=== PATIENT | female | born 1935 | race Caucasian/White ===

== ENCOUNTER 2016-07-11 11:04 | Emergency (ER) | payer OTHER, MEDICARE ==
--- NOTE | 2016-07-11 11:41 | ED SKIN/ALLERGY COMPLAINT ---
History of Present Illness General Chief Complaint: Skin Rash/ Abcess Stated Complaint: RASH Source: patient Exam Limitations: no limitations Vital Signs & Intake/Output Vital Signs & Intake/Output Vital Signs Date Time Temp Pulse Resp B/P B/P Pulse O2 O2 Flow FiO2 Mean Ox Delivery Rate 07/11 1252 98.4 60 18 170/74 94 Nasal 2.0L Cannula 07/11 1112 97.2 62 16 173/50 94 Nasal 2.0L Cannula Allergies Coded Allergies: dextromethorphan (Intermediate, RASH 07/11/16) guaifenesin (Intermediate, RASH 07/11/16) Reconcile Medications Clotrimazole (Lotrimin AF) 1 % CREAM..G. 1 USMAN TOP BID RASH apply to affected area(s) Doxycycline Hyclate 100 MG CAPSULE 1 CAP PO BID RASH Fluconazole (Diflucan) 150 MG TABLET 1 TAB PO DAILY RASH Hydrocortisone 2.5 % CREAM..G. 1 USMAN TOP BID PRN RASH Triage Note: PT TO ED WITH RASH TO HEAD. STATES LAST WEEK TOP OF HEAD STARTED TO ITCH. CALLED DERMATOLOTIST AND WAS GIVEN CREAM TO USE. STATES THAT RASH HAS STARTED TO SPREAD TO ARMS. WENT BACK ON TUESDAY DUE TO LT EYE REDNESS AND SWELLING FROM RASH AND WAS PUT ON PREDNISONE, AND TOOK A CULTURE OF AREA ON SCALP. ON TUESDAY WENT BACK TO AND HAD A BIOPSY TO SCALP WELL. STATES SHE DOES NOT FEEL ANY BETTER. STATES WAS AROUND NEPHEW WHO HAD FIFTHS DISEASE. Triage Nurses Notes Reviewed? yes Onset: Gradual Duration: constant, getting worse Timing: recent history Severity: severe Severity Numbers: 7 Possible Factors: no cause identified No Modifying Factors: none HPI: Patient is a 80-year-old female with past medical history of hypothyroidism, CLL in remission, hypertension, hyperlipidemia, COPD on 2 L of oxygen at all times who presents emergent with an 8 day history where she first developed a itching rash to the top of her head which is now spread to her for head eyes torso and now her upper and lower extremities. Patient has been evaluated on 3 occasions by her developmental mathematics professor at [facility] where she has been on steroids and clobetasol with no relief of symptoms. Patient denies any new specific allergens denies any new soaps or detergents new medications or etiology of complaints however patient does note to have a grandchild with this disease currently. Denies any fever chills shortness of breath cough tongue swelling with swelling difficulty breathing and is otherwise without complaints. Patient states that her most concerning symptom with the rash is itching. Denies any pain (MELISSA JUAN) Past History Travel History Traveled to [place] past 21 day No Medical History Any Pertinent Medical History? see below for history Cardiovascular: hypertension, hyperlipidemia Respiratory: COPD Gastrointestinal: GERD Endocrine: hypothyroidism Cancer(s): CLL Surgical History Surgical History: non-contributory Psychosocial History What is your primary language [place] Tobacco Use: Never used Family History Hx Contributory? No (MELISSA JUAN) Review of Systems Review of Systems Constitutional: Reports: no symptoms. EENTM: Reports: no symptoms. Respiratory: Reports: no symptoms. Cardiovascular: Reports: no symptoms. GI: Reports: no symptoms. Genitourinary: Reports: no symptoms. Musculoskeletal: Reports: no symptoms. Skin: Reports: see HPI, erythema. Neurological/Psychological: Reports: no symptoms. Hematologic/Endocrine: Reports: no symptoms. Immunologic/Allergic: Reports: no symptoms. All Other Systems: Reviewed and Negative (MELISSA JUAN) Physical Exam Physical Exam General Appearance: no apparent distress, alert, comfortable Eyes: Bilateral: normal appearance, PERRL, EOMI. Ears, Nose, Throat: normal pharynx, normal ENT inspection, hearing grossly normal Neck: normal inspection, supple Respiratory: normal breath sounds, chest non-tender, no respiratory distress Gastrointestinal: normal bowel sounds, soft, non-tender Skin: intact Skin Problem Location: face, upper extremities Lymphatic: no anterior cervical galen Diagram Body: 1) Noted pustule with mild surrounding erythema 2) Noted pustule with mild surrounding erythe 3) Noted pustule with mild surrounding erythe 4) Noted pustule with mild surrounding erythe 5) Noted pustule with mild surrounding erythe Head: 1) Noted erythematous raised rash 2) Noted periorbital erythematous raised rash 3) Conjunctiva normal (MELISSA JUAN) Progress Differential Diagnosis: abscess/cellulitis, allergic reaction, anaphylaxis, angioedema, contact dermatitis, drug reaction, erythema multiforme, lyme disease , meningitis/sepsis, piyriasis rosea, scarlet fever, shingles, syphilis/ gonococcemia, toxic shock syndrome, urticaria, FUNGAL RASH Plan of Care: Orders Procedure Date/time Status COMPREHENSIVE METABOLIC PANEL 07/11 1227 Complete CBC WITHOUT DIFFERENTIAL 07/11 1227 Complete Laboratory Tests 07/11/16 1231: Anion Gap 7, Estimated GFR > 60, BUN/Creatinine Ratio 24.4, Glucose 99, Calcium 8.9, Total Bilirubin 1.0, AST 28, ALT 34, Alkaline Phosphatase 63, Total Protein 6.4, Albumin 3.8, Globulin 2.6, Albumin/Globulin Ratio 1.5, CBC w Diff MAN DIFF ORDERED, RBC 3.46 L, MCV 102.2 H, MCH 33.9 H, RDW 14.7 H, MPV 8.5, Gran % 39.9 L, Lymphocytes % 58.6 H, Monocytes % 1.1 L, Eosinophils % 0.3, Basophils % 0.1, Absolute Granulocytes 3.7, Segmented Neutrophils 31 L, Band Neutrophils 7 H, Absolute Lymphocytes 5.4 H, Lymphocytes 60 H, Monocytes 1 L, Absolute Monocytes 0.1 L, Absolute Eosinophils 0, Basophils 1, Absolute Basophils 0, Platelet Estimate ADEQUATE, Hypochromic-Microcytic 1+, Macrocytic Cells 1+, PUBS MCHC 33.2 Patient on initial evaluation does note to have allergic dermatitis however patient source is undetermined in the emergency room. Patient has been on significant anti-inflammatory medications with no relief of symptoms in which there is concern of fungal involvement Patient's baseline liver function tests were within normal limits. Patient is afebrile no leukocytosis. Patient will be treated for concerns of fungus rash and she will also be covered with broad-spectrum doxycycline. She was strongly advised to modify with dermatology and to return to emergency room if symptoms worsen and patient will comply. Discussed disposition and plan with DR. PONCE who agrees (JONES VALDEZ,MELISSA) Departure Departure Disposition: HOME OR SELF CARE Condition: Stable Clinical Impression Primary Impression: Rash Referrals: URIEL BARNES MD (PCP/Family) Additional Instructions: As discussed begin the prescription of Diflucan tomorrow as YOU received this medication in the emergency room today. Begin the prescription hydrocortisone cream and next with the prescription of Lotrimin and apply as directed to the affected areas. Begin the prescription of doxycycline as directed for your symptoms. Tomorrow please follow-up with your developmental mathematics professor and provide THEM with blood work administered in the emergency room. If symptoms worsen return to the emergency room. PRESCRIPTIONS awaiting a [facility] Begin [id number] Benadryl and Pepcid as directed for your itching symptoms Departure Forms: Customer Survey General Discharge Information Prescriptions: Current Visit Scripts Fluconazole (Diflucan) 1 TAB PO DAILY #4 TAB Hydrocortisone 1 USMAN TOP BID PRN RASH #1 TUBE Clotrimazole (Lotrimin AF) 1 USMAN TOP BID #24 GM apply to affected area(s) Doxycycline Hyclate 1 CAP PO BID #14 CAP (MELISSA JUAN) PA/DRIVER TRAINEE Co-Sign Statement Statement: ED Attending supervision documentation- x I saw and evaluated the patient. I have also reviewed all the pertinent lab results and diagnostic results. I agree with the findings and the plan of care as documented in the PA's/DRIVER TRAINEE's documentation. [] I have reviewed the ED Record and agree with the PA's/DRIVER TRAINEE's documentation. [] Additions or exceptions (if any) to the PAs/DRIVER TRAINEE's note and plan are summarized below: [] (ROSARIO ORTIZ,KRISTI)
[2016-07-11 12:46] LABS: ABSOLUTE BASOPHIL COUNT 0 /CUMM (0.0-0.2); ABSOLUTE EOSINOPHIL COUNT 0 /CUMM (0.0-0.7); ABSOLUTE GRANULOCYTE CT 3.7 /CUMM (1.4-6.5); ABSOLUTE LYMPH COUNT 5.4 /CUMM (1.2-3.4); ABSOLUTE MONOCYTE COUNT 0.1 /CUMM (0.10-0.60); BASOPHIL % 0.1 % (0.0-2.0); HEMATOCRIT 35.3 % (37-47); MEAN CORPUSCULAR HGB 33.9 PG (27.0-31.0); MEAN CORPUSCULAR HGB CONC 33.2 G/DL (33.0-37.0); MEAN CORPUSCULAR VOLUME 102.2 FL (81.0-99.0); MEAN PLATELET VOLUME 8.5 FL (7.4-10.4); PLATELET COUNT 245 /CUMM (130-400); RBC DISTRIBUTION WIDTH 14.7 % (11.5-14.5); RED BLOOD CELL CT 3.46 /CUMM (4.20-5.40); WHITE BLOOD CELL COUNT 9.2 /CUMM (4.8-10.8)
[2016-07-11 12:52] VITALS: BP 170/74
[2016-07-11 12:56] LABS: EOSINOPHIL % 0.3 % (0-5); GRANULOCYTE % 39.9 % (42.2-75.2)
[2016-07-11] MEDS ORDERED: DIFLUCAN150 M1 PO (13:32)
[2016-07-11] MEDS ORDERED: HYDROCORTISONE30 GM TOP (13:37)
[2016-07-11] MEDS ORDERED: DOXYCYCLINE HY100 M2 PO (13:37)
[2016-07-11] MEDS ORDERED: LOTRIMIN AF12 GM TOP (13:37)
== END 2016-07-11 13:50 ==
LOC: ERH 11:04
PROVIDERS: Physician Assistant
DX: R21 Rash and other nonspecific skin eruption (principal)

== ENCOUNTER 2016-07-16 21:05 | Observation (INO) | payer OTHER, MEDICARE ==
[~2016-07-16] VITALS: Ht 152.4 cm; Wt 46.3 kg
[~2016-07-16 21:05] MED LIST: DIFLUCAN150 M1 PO; DOXYCYCLINE HY100 M2 PO; HYDROCORTISONE30 GM TOP; LOTRIMIN AF12 GM TOP
--- NOTE | 2016-07-16 21:39 | NUR ---
PT SENT TO ED BY ONCOLOGIST S/P BEING DIAGNOSED WITH HSV S/P BIOPSY OF RASH AREA ON SUPERIOR CENTRAL FOREHEAD. PMH OF CLL. PT DENIES PAIN. PMH OF COPD. IS CURRENTLY ON O2 VIA NC AT 2L/MIN. USES O2 WHEN OUT, SLEEPING OR EXERTING HERSELF
--- NOTE | 2016-07-16 22:17 | ED GENERAL ADULT ---
See Addendum History of Present Illness General Chief Complaint: General Adult Stated Complaint: PT WAS SIB DR DIANA HAS HSV Source: patient, family Exam Limitations: no limitations Vital Signs & Intake/Output Vital Signs & Intake/Output Vital Signs Date Time Temp Pulse Resp B/P B/P Pulse O2 O2 Flow FiO2 Mean Ox Delivery Rate 07/164 97.5 70 20 178/71 95 Nasal 2.0L Cannula Allergies Coded Allergies: dextromethorphan (Intermediate, RASH 07/11/16) guaifenesin (Intermediate, RASH 07/11/16) Reconcile Medications Clotrimazole (Lotrimin AF) 1 % CREAM..G. 1 USMAN TOP BID RASH apply to affected area(s) Doxycycline Hyclate 100 MG CAPSULE 1 CAP PO BID RASH Fluconazole (Diflucan) 150 MG TABLET 1 TAB PO DAILY RASH Hydrocortisone 2.5 % CREAM..G. 1 USMAN TOP BID PRN RASH Triage Note: PT SENT TO ED BY ONCOLOGIST S/P BEING DIAGNOSED WITH HSV S/P BIOPSY OF RASH AREA ON SUPERIOR CENTRAL FOREHEAD. PMH OF CLL. PT DENIES PAIN. PMH OF COPD. IS CURRENTLY ON O2 VIA NC AT 2L/MIN. USES O2 WHEN OUT, SLEEPING OR EXERTING HERSELF Triage Nurses Notes Reviewed? yes Onset: Abrupt Duration: day(s): Timing: recent history HPI: 07/16/16 10:50 PM This is an 80-year-old female presents to the emergency department for disseminated herpes zoster. According to the patient she was in her usual state of health until approximately 2 weeks ago when she developed an itchy scalp. She saw her mounter who ultimately did a biopsy and the results came back Tuesday consistent with herpes zoster. She has multiple other lesions on her upper torso. She denies fever or difficulty breathing other than her baseline COPD. She was referred to the emergency department for evaluation of IV antiviral therapy as she has disseminated herpes zoster in the presence of CLL. The onset of the symptoms has been abrupt, the duration has been has 2 weeks. The severity is significant as her symptoms required her to come to the emergency department for care. Past History Travel History Traveled to [place] past 21 day No Medical History Any Pertinent Medical History? see below for history Cardiovascular: hypertension, hyperlipidemia Respiratory: COPD Gastrointestinal: GERD Endocrine: hypothyroidism Cancer(s): CLL Surgical History Surgical History: non-contributory Psychosocial History What is your primary language [place] Tobacco Use: Quit >30 days ago Family History Hx Contributory? No Review of Systems Review of Systems Constitutional: Reports: fever (last week). EENTM: Denies: visual changes. Respiratory: Denies: short of breath. Cardiovascular: Reports: no symptoms. GI: Denies: abdominal pain. Genitourinary: Reports: no symptoms. Musculoskeletal: Reports: no symptoms. Skin: Reports: rash. Neurological/Psychological: Reports: headache. Hematologic/Endocrine: Reports: no symptoms. Physical Exam Physical Exam General Appearance: alert, awake, anxious Head: tenderness, vesicular and scabbed over lesions on the forehead Eyes: Bilateral: normal appearance, PERRL, EOMI. Ears, Nose, Throat: normal pharynx, normal ENT inspection Neck: normal inspection, supple Respiratory: decreased breath sounds, rhonchi Cardiovascular: regular rate/rhythm Peripheral Pulses: 4+ radial (R), 4+ radial (L) Gastrointestinal: soft, non-tender Back: decreased range of motion Extremities: normal inspection Neurologic/Psych: no motor/sensory deficits, awake, alert, oriented x 3 Skin: rash Comments: Has multiple vesicular and abrasion lesions on the upper torso and upper extremities. Core Measures ACS in differential dx? No CVA/TIA Diagnosis: No Severe Sepsis Present: No Septic Shock Present: No Progress Differential Diagnoses I considered the following diagnoses in my evaluation of the patient: [ Disseminated herpes zoster, chronic lymphocytic leukemia, viral pneumonia] Plan of Care: Orders Procedure Date/time Status Heart Healthy Diet 07/[address] in observation 07/16 2252 Active Vital Signs 07/16 2252 Active Code Status 07/16 2252 Active XRY-CHEST XRAY, PA AND LATERAL 07/16 2233 Active Saline Lock 07/16 2233 Active COMPREHENSIVE METABOLIC PANEL 07/16 2233 Active CBC WITHOUT DIFFERENTIAL 07/16 2233 Active Current Medications Sig/Georgie Start time Last Medication Dose Stop Time Status Admin Acyclovir 400 MG Q8H 07/16 2300 UNVr (Zovirax) Dextrose/Water 100 ML (D5W) Initial ED EKG: none Departure Departure Disposition: STILL A PATIENT Condition: Stable Clinical Impression Primary Impression: Disseminated herpes zoster Secondary Impressions: Chronic lymphocytic leukemia Referrals: URIEL BARNES MD (PCP/Family) Departure Forms: Customer Survey General Discharge Information Observation Note Spoke With: [facility] Physician Advisor Notified: CED GOEL DO Place Patient In: Non-ED OBS Care Area Rationale for Observation: My rational for observation is as follows [the patient has disseminated herpes zoster in the presence of chronic lymphocytic leukemia. However the infection is been ongoing for approximately 2 weeks and is in the process of resolving. We'll start her on intravenous acyclovir. 10 mg/kg every 8 hours. Infectious disease consultation in the a.m.]. Critical Care Note Critical Care Note Critical Care Time: non-applicable
--- NOTE | 2016-07-16 22:28 | NUR ---
RASHEED BABIN MD
--- NOTE | 2016-07-16 23:02 | RADIOLOGY REPORT ---
EXAMINATION: XR CHEST CLINICAL INFORMATION: Disseminated herpes virus. COMPARISON: None TECHNIQUE: 2 views of the chest were obtained. FINDINGS: The lungs are well expanded. Small pleural effusions are noted. No dense consolidation. Mildly prominent interstitial markings. Biapical pleural thickening. No pneumothorax. The cardiomediastinal silhouette is normal in size with a calcified aorta. No acute osseous abnormality. IMPRESSION: No focal consolidation. Small pleural effusions. Prominent interstitial markings are noted which could be chronic or associated with a small airways process.
--- NOTE | 2016-07-16 23:04 | NUR ---
PT'S BLOOD DRAWN AT 2258 1LAV,1BLU,1SST AND SENT TO LAB
[2016-07-16 23:20] LABS: ABSOLUTE BASOPHIL COUNT 0 /CUMM (0.0-0.2); ABSOLUTE EOSINOPHIL COUNT 0.1 /CUMM (0.0-0.7); ABSOLUTE GRANULOCYTE CT 3.1 /CUMM (1.4-6.5); ABSOLUTE LYMPH COUNT 7.5 /CUMM (1.2-3.4); ABSOLUTE MONOCYTE COUNT 0.1 /CUMM (0.10-0.60); BASOPHIL % 0.2 % (0.0-2.0); EOSINOPHIL % 0.9 % (0-5); GRANULOCYTE % 28.5 % (42.2-75.2); HEMATOCRIT 38.3 % (37-47); MEAN CORPUSCULAR HGB 33.4 PG (27.0-31.0); MEAN CORPUSCULAR HGB CONC 32.6 G/DL (33.0-37.0); MEAN CORPUSCULAR VOLUME 102.5 FL (81.0-99.0); MEAN PLATELET VOLUME 8.2 FL (7.4-10.4); PLATELET COUNT 340 /CUMM (130-400); RBC DISTRIBUTION WIDTH 14.6 % (11.5-14.5); RED BLOOD CELL CT 3.74 /CUMM (4.20-5.40); WHITE BLOOD CELL COUNT 10.9 /CUMM (4.8-10.8)
--- NOTE | 2016-07-16 23:41 | NUR ---
PHARMACY TO MIX MED WILL TAKE 20-30 MINUTES
[2016-07-16] MEDS ORDERED: VALACYCLOVIR1000 MG PO (23:43)
[2016-07-16] MEDS ORDERED: CARVEDILOL25 M1 PO (23:43)
[2016-07-16] MEDS ORDERED: LATANOPROST2.5 ML OPH (23:43)
[2016-07-16] MEDS ORDERED: ATORVASTATIN CA40 M1 PO (23:43)
--- NOTE | 2016-07-17 00:24 | History & Physical ---
MILDRED ORTIZ,[facility] 07/17/16 0023: General Information and HPI MD Statement: I have seen and personally examined JENNIFER RIZZO and documented this H&P. The patient is a 80 year old F who presented with a patient stated chief complaint of [skin rash positive for HSV]. Source of Information: patient, family Exam Limitations: no limitations History of Present Illness: Patient is a pleasant 80 year old lady with PMH of CLL (diagnosed 2.5 years ago) , HTN, HLD, GERD, hypothyroidism, who has come to the ED per her Hem/Onc doctor' s recommendation (Dr. Lenny Flannery). Patient reports that since about 2 weeks ago she started to have itchiness on the scalp and noticed painless skin lesions that gradually spread to the forehead and also started to appear sporadically on the back as well as upper and lower extremities. Patient was seen by her PCP who gave her topical antibiotics with no improvement, she was referred to a risk engineer who did skin biopsy from one of the lesions on the scalp. She got the report of the biopsy today which showed HSV infection. she was started on oral ganciclovir, however her Hem/Onc specialist recommended that she come to the hospital for evaluation of the need for IV acyclovir treatment. Of note, patient had a recent exposure to her grandson who was diganosed with 5th disease. Denies fever, chills, headache, cough, sore throat, SOB. Denies chest pain, palpitation, dizziness. Allergies/Medications Allergies: Coded Allergies: dextromethorphan (Intermediate, RASH 07/11/16) guaifenesin (Intermediate, RASH 07/11/16) Home Med list Aliskiren/Hydrochlorothiazide (Tekturna Hct 150-12.5 MG Tab) 150 MG-12.5 MG TABLET 1 TAB PO DAILY BLOOD PRESSURE (Reported) Amlodipine Besylate 5 MG TABLET 1 TAB PO DAILY blood pressure (Reported) Atorvastatin Calcium 40 MG TABLET 1 TAB PO AT BEDTIME CHOLESTEROL (Reported) Carvedilol 25 MG TABLET 1 TAB PO BID HTN (Reported) Clotrimazole (Lotrimin AF) 1 % CREAM..G. 1 USMAN TOP BID RASH apply to affected area(s) Doxycycline Hyclate 100 MG CAPSULE 1 CAP PO BID RASH Fluconazole (Diflucan) 150 MG TABLET 1 TAB PO DAILY RASH Hydrocortisone 2.5 % CREAM..G. 1 USMAN TOP BID PRN RASH Latanoprost 0.005 % DROPS 1 GTT OPH QPM EYE (Reported) Levothyroxine Sodium (Synthroid) 75 MCG TABLET 1 TAB PO MON-SAT HYPOTHYROID ( Reported) Levothyroxine Sodium 50 MCG TABLET 1 TAB PO QSUN HYPOTHYROID (Reported) Omeprazole 40 MG CAPSULE.DR 1 CAP PO DAILY heartburn (Reported) Umeclidinium Brm/Vilanterol Tr (Anoro Ellipta 62.5-25 Mcg INH) 62.5 MCG-25 MCG/ ACTUATION BLST.W.DEV 1 PUF INH DAILY COPD (Reported) Valacyclovir HCl (Valacyclovir) 1,000 MG TABLET 1 TAB PO DAILY ANTIBIOTIC ( Reported) Past History Travel History Traveled to [place] past 21 day No Medical History Cardiovascular: hypertension, hyperlipidemia Respiratory: COPD Gastrointestinal: GERD Endocrine: hypothyroidism Cancer(s): CLL Surgical History Surgical History: non-contributory Review of Systems Review of Systems Constitutional: Reports: no symptoms. EENTM: Denies: blurred vision, double vision, visual changes. Respiratory: Reports: no symptoms. GI: Reports: no symptoms. Genitourinary: Reports: no symptoms. Musculoskeletal: Reports: no symptoms. Skin: Reports: lesions, rash. Neurological/Psychological: Reports: no symptoms. Hematologic/Endocrine: Reports: no symptoms. Exam & Diagnostic Data Last 24 Hrs of Vital Signs/I&O Vital Signs Date Time Temp Pulse Resp B/P B/P Pulse O2 O2 Flow FiO2 Mean Ox Delivery Rate 07/17 0639 96.8 62 18 138/60 95 Nasal 2.0L Cannula 07/17 0334 140/64 07/17 0333 140/64 07/17 0317 97.4 07/17 0220 67 18 140/64 98 Nasal 2.0L Cannula 07/17 0123 96.2 66 20 133/63 94 Nasal 2.0L Cannula 07/16 2134 97.5 70 20 178/71 95 Nasal 2.0L Cannula Intake & Output 07/17 1600 07/17 0800 07/17 0000 Intake Total 420 Output Total 600 Balance -180 Intake, IV 300 Intake, Oral 120 Output, Urine 600 Patient 46.266 kg 46.266 kg Weight Physical Exam General Appearance Alert, Oriented X3, Cooperative, No Acute Distress Skin multiuple excoriated erythematous skin lesions on the sclap, multiple hyperpigmented and crusted erythematous skin lesions on the forehead, several sporadic erythematous papules on the back, upper and lower extremities. Skin Temp/Moisture Exam: Warm/Dry Sepsis Skin Exam (color): Normal for Ethnicity HEENT Atraumatic, EOMI, Mucous Membr. moist/pink, on the left upper eyelid there is a 0.5x0.5 cm lesion on the medial side, , erythematous and excoriated. Neck Supple Cardiovascular Regular Rate, Normal S1, Normal S2 Lungs Clear to Auscultation, Normal Air Movement Abdomen Soft, No Tenderness Neurological Normal Speech, Normal Tone Extremities No Edema, Normal Pulses Vascular Pulses Symmetrical Sepsis Peripheral Pulse Exam: Normal Sepsis Cap Refill Exam: <2 Sec Last 24 Hrs of Labs/Christian: Laboratory Tests 07/17/16 0655: Anion Gap 9, Estimated GFR 53 L, BUN/Creatinine Ratio 22.0 07/16/16 2258: Anion Gap 13, Estimated GFR 43 L, BUN/Creatinine Ratio 20.8, Glucose 107 H, Calcium 9.9, Total Bilirubin 1.3, AST 30, ALT 46, Alkaline Phosphatase 69, Total Protein 7.3, Albumin 4.6, Globulin 2.7, Albumin/Globulin Ratio 1.7, CBC w Diff NO MAN DIFF REQ, RBC 3.74 L, MCV 102.5 H, MCH 33.4 H, RDW 14.6 H, MPV 8.2, Gran % 28.5 L, Lymphocytes % 69.2 H, Monocytes % 1.2 L, Eosinophils % 0.9, Basophils % 0.2, Absolute Granulocytes 3.1, Absolute Lymphocytes 7.5 H, Absolute Monocytes 0.1 L, Absolute Eosinophils 0.1, Absolute Basophils 0, PUBS MCHC 32.6 L Diagnostic Data EKG Results sinus rhythm, Rate 65, no acute ST and T changes. OR interval 184, Qtc 421 CXR Results SERVICE DATE: 07/16/16 EXAM TYPE: RAD - XRY-CHEST XRAY, PA AND LATERAL EXAMINATION: XR CHEST CLINICAL INFORMATION: Disseminated herpes virus. COMPARISON: None TECHNIQUE: 2 views of the chest were obtained. FINDINGS: The lungs are well expanded. Small pleural effusions are noted. No dense consolidation. Mildly prominent interstitial markings. Biapical pleural thickening. No pneumothorax. The cardiomediastinal silhouette is normal in size with a calcified aorta. No acute osseous abnormality. IMPRESSION: No focal consolidation. Small pleural effusions. Prominent interstitial markings are noted which could be chronic or associated with a small airways process. DICTATED BY: JENIFER CASTELLON MD DATE/TIME DICTATED:07/16/162255 STEWARD/STEWARDESS SECOND CLASS:MAYLIN DATE/TIME TRANSCRIBED:07/16/162255 Assessment/Plan Assessment: Patient is a pleasant 80 year old lady with PMH of CLL, HTN, HLD, GERD, hypothyroidism, who has come to the ED with disseminated maculopapular rash, crusted, mostly located on the scalp and forehead and also scattered on the trunk, upper and lower extremities. Patient has a report of the skin biopsy showing HSV infection. She is under observation in floor to receive IV acyclovir. CXR: small pleural effusions, chronic prominent interstitial markings. Problem list: Skin rash with evidence of HSV infection * ID consult in am regarding the dose and duration of Acyclovir and the need for IV vs. PO acyclovir * Placed on precautions till evaluation by ID in am SARAH * most likely pre-renal * IV fluids * repeat BEP in am History of CLL, HTN, GERD, HLD, hypothyroidism * continue home medications Heart healthy diet DVT px with ALPS Pain pathways: mild/mod/severe DNR/DNI As Ranked By This Provider Problem List: 1. Rash 2. Chronic lymphocytic leukemia 3. HSV infection Core Measures/Miscellaneous Acute Coronary Syndrome ACS Diagnosis: No Cerebrovascular Accident CVA/TIA Diagnosis: No Congestive Heart Failure CHF Diagnosis: No VTE (View Protocol) VTE Risk Factors: Acute medical illness, Age > 40 No [facility] prophylaxis d/t: VTE low risk, No contraindications No VTE Pharm Prophylaxis d/t: VTE low risk, No contraindications VTE Diagnosis: No VTE Type: NONE VTE Confirmed by (Test): NONE Sepsis (View Protocol) Severe Sepsis Present: No Septic Shock Septic Shock Present: No Miscellaneous Documentation Attending Case Discussed With: SANA MOJICA MD Primary Care Physician: URIEL BARNES MD Patient sees these Specialists Dr. 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 She was sent in by her Oncologist for IV antiviral therapy after a rash with skin biopsy result positive for HSV. She had developed a nodulopapular rash around July 03 that started on her head/ scalp and was intensely pruritic, but not painful. The rash went down the back of her head and forehead region, She also had a blister rash on her left hand which was painful. In the interval 2 weeks she has used antifungal cream and steroids without improvement. On account of this she went to her risk engineer who did a skin biopsy. The results came back postitive for HSV and she was prescribed oral ganciclovir. However, her oncologist sent her to the ER for IV antiviral therapy due to her underlying immunosuppression. Physical Exam General: Appearance Alert, Oriented X3, Cooperative, No Acute Distress on O2 by nasal canula Skin: multiuple dry excoriated erythematous skin lesions on the sclap, multiple hyperpigmented and crusted erythematous skin lesions on the forehead, several scattered erythematous papules on the back, upper and lower extremities. Skin: Temp/Moisture Exam: Warm/Dry HEENT: Atraumatic, EOMI, Mucous Membr. moist/pink, on the left upper eyelid there is a 0.5x0.5 cm lesion on the medial side, , erythematous and excoriated. Neck: Supple Cardiovascular: Regular Rate, Normal S1, Normal S2 Lungs: Clear to Auscultation, Normal Air Movement Abdomen: Soft, No Tenderness Neurological:Normal Speech, Normal Tone Extremities: No Edema, Normal Pulses Labs: WBC 10.9, Hb 12.5, Hct 38.3, Plt 340. Na 134, K 4, Cr 1.2 CXR: No focal consolidation. Small pleural effusions. Prominent interstitial markings are noted which could be chronic or associated with a small airways process. Assessment Ms Rizzo presents with symptoms of a disseminated viral exanthem-likely HSV. Her previous applications of various topical therapies like antifungal and steroid creams could have altered the typical vesicular appearance of the HSV lesions. Considering her immunosuppressed state from CLL, COPD comorbidity and old age, the widespread nature of the lesions, and the potentially catastrophic implications of a HSV pneumonia in her diseased lungs, a period of observation for initial aggressive intravenous antiviral therapy and monitoring is warranted. Problem list 1. Disseminated viral exanthem likely HS 2. Acute kidney injury 3. COPD on 2 L of O2 by nasal canula 4. History of CLL in remission 5. Hypertension Plan * Place in observation in the General Medicine floor * IV acyclovir 400 mg Q 8 hrs * ID consultation in the morning for antiviral therapy guidance * Contact precautions (The lesions are crusted/dry and no need for airborne precautions) * Gentle hydration with Normal saline 100cc/hr X 500 mls * O2 by nasal canula to keep O2 sat > 92% * Continue home medications for hypertension, hypothyroidism * DVT prophylaxis with ALPS * Patient's code is DNR/DNI GALINA ORTIZ, [facility] 07/17/16 0638: Attending MD Review Statement Attending Statement Attending MD Statement: examined this patient, discuss w/resident/PA/NOZZLE OPERATOR, agreed w/resident/PA/NOZZLE OPERATOR, discussed with family Attending Assessment/Plan: 80 yo very pleasant lady with h/o CLL (diagnosed 3 yrs ago) in remission, HTN, GERD, hypothyroidism, COPD pn 2L, previous colonoscopy that was c/b splenic rupture requiring splenectomy (1995) is sent in by her Oncologist (Dr. Flannery ) for IV antiviral therapy for herpes. Patient developed severe itching to her forehead on July 03, followed by a diffuse erythematous rash to her forehead and subsequently a few painful blisters to her left upper eyelid, bilateral forearm and torso. She was evaluated by Openstack Developer, prescribed steroids, antifungal rx with no relief. She underwent punch biopsy of the forehead lesion on July [address] Salguero. She was seen in the ER on July 11 and was prescribed doxycycline, fluconazole, clotrimazole and hydrocortisone with some relief. She received the results of her biopsy (suggesting Herpes virus infection) and her Openstack Developer started her on Ganciclovir TID which she has been taking for the past 2 days. She was advised to come to ER, if she noticed any new lesions or she had mental status changes, etc. She called her Oncologist who suggested her to come to ER for IV antiviral therapy given she has underlying CLL and s/p splenectomy ( immunocompromised host). She reports her grandson was diagnosed with Fifth disease. Vitals stable. Lesions noted are all crusted and dry. Labs: WBC 10.9, macrocytosis, BUN 25, creat 1.2 (baseline 0.9), CXR: small pleural effusions, chronic prominent interstitial markings. EKG: SR, nonspecific T wave changes. Plan is to observe her on Gen Med, initiate IV Acyclovir TID and consult ID for further recommendations about course and duration of antiviral therapy. Gentle IV fluids. Trend renal functions due to SARAH. I have explained to them that since the lesions are crusted, she is no more contagious. Nursing and drying supervisor cooking casing has placed on precautions until Dr. Ervin evaluates patient in AM. DVT ppx. DNR/ I.
--- NOTE | 2016-07-17 00:30 | NUR ---
HOUSESTAFF IN WITH PT.
--- NOTE | 2016-07-17 00:56 | NUR ---
PER HOUSESTAFF NEED TO FINISH EXAM BEFORE IV ACYCLOVIR CAN BE HUNG.
--- NOTE | 2016-07-17 01:01 | NUR ---
PT'S ASSIGNMENT [id number]
--- NOTE | 2016-07-17 01:11 | NUR ---
BED ASSISGNMENT CHANGED
--- NOTE | 2016-07-17 01:37 | NUR ---
REPORT TO SARAH, REQUEST HOUSERSTAFF PLACE AIR BORNE ORDER.
[2016-07-17] MEDS ORDERED: SYNTHROID75 MCG PO (01:38)
[2016-07-17] MEDS ORDERED: LEVOTHYROXINE50 MCG PO (01:39)
[2016-07-17] MEDS ORDERED: TEKTURNA HCT PO (01:42)
[2016-07-17] MEDS ORDERED: ANORO ELLIPTA1 EACH INH (01:43)
[2016-07-17 02:20] VITALS: BP 140/64
[2016-07-17] MEDS ORDERED: AMLODIPINE BESYL5 M1 PO (02:53)
[2016-07-17] MEDS ORDERED: OMEPRAZOLE40 M1 PO (02:54)
--- NOTE | 2016-07-17 04:01 | NUR ---
LATE ENTRY: PT ARRIVED TO FLOOR FROM ED BY WHEELCHAIR AT 0200. PT A&OX3, ON 2L NC AND IS SEMI OXYGEN DEPENDENT WHEN OUT FOR LONG PERIODS OF TIME AND ALSO FOR SLEEP. NO DISTRESS NOTED. PT DENIES SOB. IST @ BEDSIDE. VSS. AFEBRILE. DENIES CP. PT RECEIVING ONE 500 BAG OF NS @ 100 ML/HR FOR HYDRATION. PT HAS DRY RAISED PIMPLE LIKE APPEARANCE SPOTS ON HER BL ARMS, LEGS, BACK, AND ABDOMEN RANDOMLY SCATTERED IN THOSE AREAS. PT HAS A SMALL PATCH OF DRY RAISED SPOTS COLLECTED IN THE MIDDLE OF HER FOREHEAD THAT HAVE SCABBED OVER. PT STATES SHE PUTS TWO DIFFERENT KINDS OF CREAM ON THAT AREA TWICE A DAY AND ONLY COMPLAINS OF ITCHINESS WHICH SHE SAYS IS HELPED WITH THE CREAM. WOUND MAN COMPLETED. ALL NOTED AREAS RN CORRECTIONS AT THIS TIME. PER HOSPITAL POLICY CONTACT AND AIRBORNE PRECAUTIONS IN PLACE. PT EDUCATED AND UNDERSTANDS THE IMPORTANCE OF THESE PRECAUTIONS. PT DENIES PAIN. PT SHOWN HOW TO USE CALL LIGHT SYSTEM. INFORMATION PACKET GIVEN. AWAIT FURTHER ORDERS FROM MD. WILL CONTINUE TO MONITOR.
[2016-07-17 06:39] VITALS: BP 138/60
--- NOTE | 2016-07-17 13:09 | PN- Att Addend ---
Attending Addendum Attending Brief Note 80-year-old female with medical history significant for CLL in remission, hypertension, GERD, hypothyroidism, COPD on 2 L of home oxygen, status post splenectomy secondary to colonoscopy has been admitted on the floor for IV antiviral therapy for possible disseminated herpes simplex virus. Patient was seen and examined on the bedside and feels that she is doing fine and weight but complaining about not getting her morning blood pressure medications. The rash on her forehead seems to have been crusted and does not require airborne isolation but waiting for the final report by her victorian literature professor for the final diagnosis. Her dose for the IV acyclovir has been confirmed. Patient's family wants to go home today but have explained to them to let her complete the full course of IV acyclovir and get the final recommendations from the victorian literature professor.
--- NOTE | 2016-07-17 13:30 | NUR ---
TAKEN OFF ISOLATION PER CUT PRESS OPERATOR DR LINK #156. DERMATOLOGY REPORTED WAS DIAGNOSED WITH HSV, NOT ZOSTER. CUT PRESS OPERATOR WILL SPEAK WITH ID AND COVERING ATTENDING REGARDING POSSIBLE DISCHARGE TODAY. PATIENT AND DAUGHTER WAS UPDATED ON THIS BY CUT PRESS OPERATOR. WILL CONTINUE TO MONITOR.
--- NOTE | 2016-07-17 14:19 | Patient Discharge Instructions ---
Discharge Instructions General Discharge Information You were seen/treated for: Herpes simplex infection Special Instructions: -Please follow-up with your primary care physician within 1 week after discharge -Please follow-up with your associate principal after discharge -Please take valacyclovir total of 7 days Acute Coronary Syndrome Inclusion Criteria At DC or during hospital stay patient has or had the following: ACS DIAGNOSIS No Discharge Core Measures Meds if any: Prescribed or Continued at Discharge Meds if any: NOT Prescribed or Continued at Discharge Congestive Heart Failure Inclusion Criteria At DC or during hospital stay patient has or had the following: CHF DIAGNOSIS No Discharge Core Measures Meds if any: Prescribed or Continued at Discharge Meds if any: NOT Prescribed or Continued at Discharge Cerebrovascular accident Inclusion Criteria At DC or during hospital stay patient has or had the following: CVA/TIA Diagnosis No Discharge Core Measures Meds if any: Prescribed or Continued at Discharge Meds if any: NOT Prescribed or Continued at Discharge Venous thromboembolism Inclusion Criteria VTE Diagnosis No VTE Type NONE VTE Confirmed by (Test) NONE Discharge Core Measures - Per Current guidelines, there needs to be overlap - treatment for the first 5 days of Warfarin therapy. - If discharged on Warfarin prior to 5 days of - overlap therapy, the patient will need to be - assessed for post discharge needs including - *Post discharge parental anticoagulation - *Warfarin and/or parental anticoagulation education - *Follow up date to check INR post discharge At least 5 days overlap therapy as Inpatient Yes Meds if any: Prescribed or Continued at Discharge Note: Overlap Therapy is Warfarin and Anticoagulant Meds if any: NOT Prescribed or Continued at Discharge
[2016-07-17 15:29] VITALS: BP 100/53
== END 2016-07-17 16:20 ==
LOC: ERH 21:05 → ERHI 22:53 → 2NB 22:53 → ENRESERV 07-17 01:00 → CANRESERV 07-17 01:00 → ENRESERV 07-17 01:11 → 2NB 07-17 01:51 → ENPENDDIS 07-17 16:13 → 2NB 07-17 16:20
PROVIDERS: Emergency Medicine; ADMIT Student in an Organized Health Care Education/Training Program
DX: B00.9 Herpesviral infection, unspecified (principal); Z85.6 Personal history of leukemia; I10 Essential (primary) hypertension; K21.9 Gastro-esophageal reflux disease without esophagitis; E78.5 Hyperlipidemia, unspecified; E03.9 Hypothyroidism, unspecified; J44.9 Chronic obstructive pulmonary disease, unspecified; Z99.81 Dependence on supplemental oxygen; J90 Pleural effusion, not elsewhere classified
CPT/HCPCS: 6040; 36415; 82436; 93005; 93010; 96374; 96376; G0378